=== PATIENT | female | born 1985 | race Two or more races ===

== ENCOUNTER 2024-09-09 10:30 | Inpatient (IN) | payer BC ==
[~2024-09-09] VITALS: Ht 170.2 cm; Wt 3.2 kg
[2024-09-13 07:19] VITALS: BP 120/73
[2024-09-13] MEDS ORDERED: PRENATAL + DHA1 EAC1 PO (08:33)
[2024-09-13] MEDS ORDERED: ADULT LOW DOSE81 M1 PO (08:34)
[2024-09-13] MEDS ORDERED: OMEGA-31000 MG PO (08:34)
[2024-09-13] MEDS ORDERED: VITAMIN D310 MCG/1 M PO (08:35)
[2024-09-13 08:44] VITALS: BP 120/73
[2024-09-13] MEDS ORDERED: RINGERS SOLUTION,LACTATED 1,000 ML IV SCH (08:45)
[2024-09-13] MEDS ORDERED: CEFAZOLIN SODIUM 1,000 MG VIAL IV SCH (08:45)
[2024-09-13] MEDS ORDERED: CITRIC ACID/SODIUM CITRATE 30 ML BLIST.PACK PO SCH (08:45)
[2024-09-13 09:16] LABS: HEMATOCRIT 35.5 % (36.0-45.00); HEMOGLOBIN 12.5 g/dL (12.0-15.00); MEAN CELL VOLUME 89.6 fL (80.00-100.00); MEAN CORPUSCULAR HEMOGLOBIN 31.6 pg (27.00-32.0); MEAN CORPUSCULAR HGB CONC 35.2 g/dl (32.0-36.0); PLATELET COUNT 166 K/uL (150-450); RED BLOOD COUNT 3.96 M/uL (4.00-6.00); RED CELL DISTRIBUTION WIDTH 14.4 % (11.5-14.5)
[2024-09-13 09:48] LABS: INR < 0.93; PROTHROMBIN TIME 9.6 SECONDS (9.0-11.5)
[2024-09-13 10:11] LABS: ALBUMIN 2.9 gm/dL (3.4-5.0); BILIRUBIN TOTAL 0.62 mg/dL (0.3-1.2); CALCIUM 8.8 mg/dL (8.5-10.1); CREATININE SERUM 0.67 mg/dL (0.55-1.02); GFR 99.59; GLOBULINA 3.7 G/DL (2.4-3.5); POTASSIUM 4.02 mEq/L (3.5-5.1); TOTAL PROTEIN 6.6 gm/dL (6.4-8.2)
[2024-09-13] MEDS ORDERED: OXYTOCIN 10 UNITS/ML VIAL ONE ×2 (11:34→15:57)
[2024-09-13] MEDS ORDERED: ERYTHROMYCIN BASE OPHT 1GM EACH TUBE OP ONE ×2 (11:34→12:30)
[2024-09-13] MEDS ORDERED: OXYTOCIN 10 UNITS/ML VIAL IV ONE (12:30)
[2024-09-13] MEDS ORDERED: OXYTOCIN 1,000 ML IV ONE (14:30)
[2024-09-13] MEDS ORDERED: MORPHINE SULFATE 4 MG/ML CARTRIDGE IV SCH (14:30)
[2024-09-13] MEDS ORDERED: KETOROLAC TROMETHAMINE 30 MG VIAL ONE (14:41)
[2024-09-13] MEDS ORDERED: KETOROLAC TROMETHAMINE 30 MG VIAL IV SCH (14:45)
[2024-09-13 16:47] VITALS: BP 132/60
[2024-09-13] MEDS ORDERED: DOCUSATE SODIUM 100MG CAP PO SCH (17:00)
[2024-09-14 01:25] VITALS: BP 115/69; O2SAT 100
[2024-09-14] MEDS ORDERED: ACETAMINOPHEN 500 MG GEL..CAP PO SCH (06:00)
[2024-09-14 08:02] LABS: HEMATOCRIT 28.1 % (36.0-45.00); MEAN CELL VOLUME 91.1 fL (80.00-100.00); MEAN CORPUSCULAR HEMOGLOBIN 32.5 pg (27.00-32.0); MEAN CORPUSCULAR HGB CONC 35.6 g/dl (32.0-36.0); RED BLOOD COUNT 3.09 M/uL (4.00-6.00); RED CELL DISTRIBUTION WIDTH 14.2 % (11.5-14.5)
[2024-09-14 08:22] VITALS: BP 118/56
[2024-09-14 08:40] LABS: PLATELET COUNT 123 K/uL (150-450)
[2024-09-14] MEDS ORDERED: PNV,CALCIUM 72/IRON/FOLIC ACID 1 TAB TABLET PO SCH (09:00)
[2024-09-14] MEDS ORDERED: SIMETHICONE 125 MG CAPSULE PO SCH (09:00)
[2024-09-14] MEDS ORDERED: GABAPENTIN 300 MG CAPSULE PO SCH (09:00)
[2024-09-14] MEDS ORDERED: IBUprofen 600 MG TABLET PO SCH (12:00)
[2024-09-14 12:40] VITALS: BP 120/80
[2024-09-14 18:13] VITALS: BP 104/59; O2SAT 97
[2024-09-15] VITALS: BP 94/65
[2024-09-15 08:00] VITALS: BP 90/55; O2SAT 99
== END 2024-09-15 12:44 | disposition home or self-care (01) | DRG 788 ==
LOC: LDR 09-13 08:16 → OB/GYN 09-13 12:58 → LDR 09-28 10:30
PROVIDERS: ADMIT Obstetrics & Gynecology Gynecology; ATTEND Obstetrics & Gynecology Gynecology
PROC: 4A1HXCZ Monitoring of Products of Conception, Cardiac Rate, External Approach (ICD-10-PCS; 2024-09-13)
PROC: 10D00Z1 Extraction of Products of Conception, Low, Open Approach (ICD-10-PCS; principal; 2024-09-13 11:00)
DX: O32.1XX0 Maternal care for breech presentation, not applicable or unspecified (principal); Z3A.39 39 weeks gestation of pregnancy; Z37.0 Single live birth; Z20.822 Contact with and (suspected) exposure to COVID-19

== ENCOUNTER 2024-09-12 12:54 | Outpatient (CLI) | payer BC ==
[2024-09-13] MEDS ORDERED: PRENATAL + DHA1 EAC1 PO (08:33)
[2024-09-13] MEDS ORDERED: ADULT LOW DOSE81 M1 PO (08:34)
[2024-09-13] MEDS ORDERED: OMEGA-31000 MG PO (08:34)
[2024-09-13] MEDS ORDERED: VITAMIN D310 MCG/1 M PO (08:35)
== END 2024-09-12 13:37 | disposition home or self-care (01) ==
LOC: NST 12:54
PROVIDERS: ATTEND Obstetrics & Gynecology Gynecology
DX: Z34.83 Encounter for supervision of other normal pregnancy, third trimester (principal)